=== PATIENT | male | born 1965 | race Caucasian/White ===

== ENCOUNTER → 2018-10-11 09:15 | Outpatient (CLI) | payer OTHER, SELFPAY ==
[2017-03-08 07:36] VITALS: BMI 33.3
[2018-10-11 10:54] LABS: Anion Gap 9 (5-15); BUN 26 mg/dL (7-18); Calcium,Total 8.6 mg/dL (8.5-10.1); Chloride 106 mmol/L (98-107); Cholesterol 176 mg/dL (200); Creatinine, Serum 1.04 mg/dL (0.70-1.30); EST Glomerular Filtration Rate 79 mL/min (>60); Est Glom Filt Rate - Afr Amer 95 mL/min (>60); Glucose 89 mg/dL (74-106); High Density Lipoprotein 52 mg/dL; Potassium 4.3 mmol/L (3.5-5.1); Sodium Level 143 mmol/L (136-145); Thyroid Stim Hormone (TSH) 0.72 uIU/mL (0.358-3.74); Triglycerides 112 mg/dL; Very Low Density Lipoprotein 22 mg/dL (5-40)
[2018-10-13 08:57] LABS: Vitamin D,25 Hydroxy 32.9 ng/mL (29.95-100.01)
== END ==
PROVIDERS: Family Provider Family Medicine; PCP Family Medicine; Referring Provider Family Medicine; Visit Provider Family Medicine
DX: Z00.00 Encounter for general adult medical examination without abnormal findings (principal); I10 Essential (primary) hypertension; E78.00 Pure hypercholesterolemia, unspecified
CPT/HCPCS: 36415; 80048; 80061; 82306; 84403; 84443

== ENCOUNTER → 2020-09-26 11:02 | Outpatient (CLI) | payer OTHER, SELFPAY ==
--- NOTE | 2020-09-26 12:23 | NEURO ---
NCS and/or EMG Patient Report Ordering Doctor: Jayro Lu DATE OF SERVICE: 09/26/20 Indication: Fluctuating stiffness, numbness and tingling of the left hand (patient is left hand dominant). Occasionally, symptoms will radiate further up the extremity. No noticeable weakness. No neck pain. Evaluate for entrapment neuropathy and/or radiculopathy. Findings: Nerve conduction studies were performed in the left upper extremity. The left median motor study recording the abductor pollicis brevis showed a slightly reduced amplitude, prolonged distal latency and slowed conduction velocity. The left ulnar motor study recording the abductor digiti minimi showed a normal amplitude, normal distal latency and normal conduction velocity. No conduction block or focal slowing was present across the elbow. The left median sensory response recording digit two showed a reduced amplitude, markedly prolonged latency and markedly slowed conduction velocity. The left ulnar sensory response recording digit five showed a normal amplitude, latency and conduction velocity. The left radial sensory response recording over the extensor snuff box showed a normal amplitude, latency and conduction velocity. Left median-ulnar lumbrical / interosseous motor latencies showed a normal median latency compared to the ulnar. Needle EMG of the left upper extremity and cervical paraspinal muscles was performed. No denervation was seen in any muscle. In the left abductor pollicis brevis, insertional activity was increased and occasional fasciculation potentials were seen. No clear evidence of active denervation. In the abductor pollicis brevis, motor units were large and polyphasic with slightly reduced recruitment. All other muscles demonstrated normal motor unit morphology, activation and recruitment patterns. Impression: This is an abnormal study. There is electrophysiologic evidence of a moderately severe, left median neuropathy across the wrist. These findings are compatible with the clinical diagnosis of carpal tunnel syndrome. In addition, there is no electrophysiologic evidence of superimposed cervical radiculopathy in the left upper extremity. Alexis Shah D.O.
== END ==
PROVIDERS: PCP Family Medicine; Referring Provider Physician Assistant Surgical; Visit Provider Physician Assistant Surgical
DX: R20.2 Paresthesia of skin (principal)
CPT/HCPCS: 95886; 95910

== ENCOUNTER 2022-01-01 19:50 | Emergency (ER) | payer OTHER, SELFPAY ==
[2022-01-01 19:51] VITALS: BP 184/103; PULSE 93; RESP 18; TEMP 36.8; O2SAT 98; BMI 36.1
--- NOTE | 2022-01-01 21:02 | EKG12_ITS ---
Test Reason : DYSRHYTHMIA Blood Pressure : / mmHG Vent. Rate : 078 BPM Atrial Rate : 078 BPM P-R Int : 154 ms QRS Dur : 098 ms QT Int : 386 ms P-R-T Axes : 059 062 041 degrees QTc Int : 440 ms Sinus rhythm with marked sinus arrhythmia Otherwise normal ECG Confirmed by SUSAN KILGORE, CALLY ([id number]), industrial editor TAWANA MCKEE ([id number]) on 01/02/2022 9:23:23 AM Referred By: TL Confirmed By:CALLY DAVIS MD
--- NOTE | 2022-01-01 21:02 | EX.ED.DYSGE1 ---
HPI History of Present Illness Chief Complaint: Shortness of Breath Informant: patient and family Narrative Narrative: Patient here with family evaluation sent from urgent care due to his chest pain complaints. He started having nonproductive cough 2 days ago yesterday fatigue today increased wheezing. Mild headache. If tingling from the neck up that was transient. No vomiting or diarrhea. No urinary symptoms. He had COVID twice last time March 2021 he is vaccinated without the booster. He states he was wheezing use inhaler prior to arrival. He notes his asthma is exacerbated. He says fatigue is similar to his COVID previously. Chest discomfort due to wheezing. No treatments done at urgent care he was sent here for evaluation. He has no diabetes history. He has improvement with asthma with steroid shots in the past. No history of coronary disease. History of hypertension. Prior similar symptoms: Yes PFSH PFSH Medical History Asthma HTN (hypertension) Home Medications bupropion HCl 300 mg 24 hr tablet, extended release (Wellbutrin XL) 300 mg PO DAILY 08/23/16 [History Last Taken Unknown] aspirin 81 mg chewable tablet 81 mg PO DAILY@0800 03/07/17 [History Last Taken Unknown] lisinopril 5 mg tablet (Zestril) 5 mg PO DAILY 03/07/17 [History Last Taken 03/08/17 07:00] cephalexin 500 mg capsule 500 mg PO Q8H #21 caps 03/25/21 [Rx Last Taken Unknown] lisinopril 10 mg-hydrochlorothiazide 12.5 mg tablet 1 tab PO 03/25/21 [History Last Taken Unknown] Allergy/AdvReac Type Severity Reaction Status Date / Time ragweed pollen Allergy Shortness Verified 01/01/22 19:51 of breath Surgical History History of carpal tunnel release Social History Smoking Status: Never smoker ROS ROS ED Constitutional Constitutional ED: Denies chills, fever(s) or sweats Eyes Eyes: Denies change in vision ENT ENT ED: Denies dysphagia or sore throat Cardiovascular Cardiovascular: Reports chest pain; Denies leg edema, palpitations or racing heartbeat Respiratory/Chest Respiratory/Chest: Reports cough and dyspnea; Denies dyspnea on exertion Gastrointestinal Gastrointestinal: Denies abdominal pain, diarrhea, nausea or vomiting Genitourinary Genitourinary ED: Denies dysuria, hematuria or urinary frequency Musculoskeletal Musculoskeletal: Denies back pain, extremity pain or neck pain Integumentary Denies rash or wounds Neurologic Neurologic: Reports headache(s); Denies paresthesias or weakness EXAM Physical Exam Const Vital Signs: 01/01/22 19:51 Temperature 98.2 F Temperature Source Temporal Pulse Rate 93 Respiratory Rate 18 Blood Pressure 184/103 H Blood Pressure Mean 130 Pulse Ox 98 Oxygen Delivery Method Room Air Positive well nourished and well developed General Appearance ED: well developed and NAD HEENT Reports moist mucous membranes normocephalic and atraumatic Eyes PERRL, EOMs intact bilaterally and conjunctivae normal General Eye ED: Yes normal appearance of both eyes Neck no lymphadenopathy and supple General: Negative for tenderness Chest Wall Chest: Negative for tenderness Resp normal respiratory effort and normal air movement Effort and Inspection: symmetric chest movement; Negative for respiratory distress Cardio regular rate, regular rhythm and no murmurs Peripheral Pulses: pulses 2+ throughout GI normal to inspection, nondistended, normoactive bowel sounds and non-tender Palpation: Negative for guarding or rebound tenderness present Back/Spine no CVA tenderness and no thoracic nor lumbar tenderness Extremity normal to inspection General Extremety ED: Negative for edema or tenderness General Extremity: Negative for edema Neuro oriented x3 and no sensory deficits noted Sensorium / Orientation: awake and alert Skin no rashes or lesions noted and no wounds MDM MDM MDM Narrative Medical decision making narrative: Patient vitals are stable EKG was normal. He sent in from urgent care pericardiac work-up initiated COVID swab ordered addition for [place] with his asthma history. However prior to anything being obtain patient left the department stating he will follow-up with his PCP for this. Patient eloped prior to any results for image studies. EKG Initial EKG: Attestation: I personally reviewed and interpreted this EKG as follows: Comments: Sinus arrhythmia rate of 78, no ST or T wave changes. Discharge Plan Triage Chief Complaint: Shortness of Breath ED Provider: Alex Malhotra Dx/Rx/DC Orders Clinical Impression: Asthma exacerbation, Viral URI with cough, Chest pain Prescriptions: No Action lisinopril-hydrochlorothiazide 10-12.5 mg tablet 1 tab PO cephalexin 500 mg capsule 500 mg PO Q8H Qty: 21 0RF bupropion HCl [Wellbutrin XL] 300 MG tablet extended release 24 hr 300 mg PO DAILY aspirin 81 MG tablet,chewable 81 mg PO DAILY@0800 Label Comments: stopped taking on 03/05/14 for 03/08/17 lisinopril [Zestril] 5 MG tablet 5 mg PO DAILY Primary Care Provider: Santana Wisdom Referrals: Santana Wisdom MD [Primary Care Provider] - Disposition Disposition: Elopement Discharge Date/Time: 01/01/22 21:45
== END 2022-01-01 21:45 | disposition left against medical advice (07) ==
PROVIDERS: Emergency Provider Emergency Medicine; PCP Family Medicine; Visit Provider Emergency Medicine
DX: J45.901 Unspecified asthma with (acute) exacerbation (principal); J06.9 Acute upper respiratory infection, unspecified; I10 Essential (primary) hypertension; Z86.16 Personal history of COVID-19; Z79.899 Other long term (current) drug therapy; Z79.82 Long term (current) use of aspirin
CPT/HCPCS: 93005; 96372; 99283; A4216

== ENCOUNTER → 2022-07-09 | Outpatient (CLI) | payer OTHER, SELFPAY ==
[2022-07-09 12:32] LABS: Anion Gap 6 (5-15); BUN 22 mg/dL (7-18); BUN/Creat Ratio 19.5 RATIO (10-20); Chloride 108 mmol/L (98-107); Cholesterol 216 mg/dL (200); Creatinine, Serum 1.13 mg/dL (0.70-1.30); EST Glomerular Filtration Rate 71 mL/min (>60); Est Glom Filt Rate - Afr Amer 86 mL/min (>60); Glucose 96 mg/dL (74-106); High Density Lipoprotein 45 mg/dL; Potassium 4.3 mmol/L (3.5-5.1); Sodium Level 142 mmol/L (136-145); Triglycerides 239 mg/dL; Very Low Density Lipoprotein 48 mg/dL (5-40)
== END | disposition home or self-care (01) ==
LOC: MFPLAB 10:25
PROVIDERS: PCP Family Medicine; Visit Provider Nurse Practitioner Family
DX: Z13.220 Encounter for screening for lipoid disorders (principal); I10 Essential (primary) hypertension
CPT/HCPCS: 36415; 80048; 80061

== ENCOUNTER → 2022-10-01 | Outpatient (CLI) | payer OTHER, SELFPAY ==
[2022-10-01 13:24] LABS: Cholesterol 193 mg/dL (200); High Density Lipoprotein 40 mg/dL; Triglycerides 246 mg/dL; Very Low Density Lipoprotein 49 mg/dL (5-40)
== END | disposition home or self-care (01) ==
LOC: MFPLAB 10:27
PROVIDERS: PCP Family Medicine; Visit Provider Family Medicine
DX: E78.00 Pure hypercholesterolemia, unspecified (principal)
CPT/HCPCS: 36415; 80061

== ENCOUNTER → 2023-05-20 | Outpatient (CLI) | payer OTHER, SELFPAY ==
--- OUTSIDE RECORDS SUMMARY | 2023-05-20 09:30 | XMS RPT_ITS | CCD ---
Author Name Unknown Address [address] [place] [address] Organization [facility] Care Team Providers Care Bark Tanner Name Role Phone Adonis KILGORE, Julio Jo Unavailable [phone] Terry HERNANDEZ, Subha Martínez Unavailable Pcp, No Primary Care Provider Unavailabl e Medications Completed/Discontinued Medications Medication Drug Class(es) Dates Sig (Normalized) Sig (Original) 24 hr buPROPion hydrochloride 300 mg extended release oral tablet (1 source) Aminoketone take 1 tablet by may th once daily buPROPion XL (WELLBUTRIN XL) 300 mg 24 hr tablet Take 300 mg by mouth once daily. 0 Active Problems Problem Classification Problem Date Documented Da te Episodic/Chronic Nonspecific chest pain (1 source) Chest discomfort; Translations: [Other chest pain] Episodic Unclassified (1 source) Screening for malignant neoplasm of colon ; Translations: [Encounter for screening for malignant neoplasm of colon] Onset: 02-08-2017 02-08-2017 Results Test Name Value Interpretation Reference Range Facil ity Encounters Encounter Date Encounter Type Care Provider Facility Start: 01-01-2022 End: 01-01-2022 ambulatory Facility:[facility] Start: 01-01-2022 End: 01-01-2022 Patient encounter procedure Baljeet Cho APRN.SCIENCE AND OPERATIONS OFFICER Work Phone: [facility] Procedures Date Procedure Procedure Detail Performing Clinician Start: 02-08-2017 Screening for malign ant neoplasm of colon Screening, colon cancer Subha Stewart PA-C Plan of Treatment Date Care Activity Detail Author Start: 12-21-2021 Influenza vaccination INFLUENZA (#1) [facility] Start: 02-17-2021 COVID-19 VACCINE (2 - Booster for Flo series) COVID-19 VACCINE (2 - Booster for Flo series) [facility] Start: 09-21-2018 PROSTATE CANCER SCREENING DISCUSSION PROSTATE CANCER SCREENING DISCUSSION [facility] Start: 03-08-2017 End: 03-08-2017 Appointment Appointment [facility] Work Phone: Start: 02-08-2017 End: 02-11-2017 Colonoscopy flx dx w/collj spec when pfrmd Colonoscopy [facility] [employer] Work Phone: Start: 09-21-2013 SHINGRIX VACCINE (1 of 2) SHINGRIX VACCINE (1 of 2) [facility] Start: 09-21-2008 COLOGUARD (FIT-DNA) COLOGUARD (FIT-DNA) [facility] Start: 09-21-2008 Colonoscopy COLONOSCOPY [facility] Start: 09-21-2008 COLORECTAL CANCER SCREENING COLORECTAL CANCER SCREENING [facility] Start: 09-21-[address] COLONOGRAPHY [facility] Start: 09-21-2008 DIABETES SCREEN DIABETES SCREEN [facility] Start: 09-21-2008 FECAL OCCULT BLOOD FECAL OCCULT BLOOD [facility] Start: 09-21-2008 SIGMOIDOSCOPY SIGMOIDOSCOPY [facility] Start: 09-21-1998 LIPID SCREEN LIPID SCREEN [facility] Start: 09-21-1982 Urine microalbumin profile DTAP,TDAP,TD (1 - Tdap) [facility] Start: 09-21-1981 HEPATITIS C SCREENING HEPATITIS C SCREENING [facility] Start: 09-21-1981 HIV SCREENING HIV SCREENING [facility] Start: 1975 Adult depression screening assessment DEPRESSION SCREENING [facility] Start: 1965 HEPATITIS B (1 of 3 - 3-dose series) HEPATITIS B (1 of 3 - 3-dose series) [facility] Payers Date Payer Category Payer Private Health Insurance [facility] CHO[facility] PL[facility] [id number] 2018-Present [phone] [address] [place] [address] HMO [id number] 2018 Unknown [id number] Social History Date Type Detail [facility] Start: 1965 Sex Assigned At Not on file [facility] Progress note 01-01-2022 Note Date & Type Note Facility 01-01-2022 Note HNO ID: [id number] Author: Baljeet Cho APRN.FABIOLA Service: ? Author Type: Nurse Practitioner Type: Progress Notes Filed: 01/01/2022 7:46 PM Note Text: Patient triaged at [facility]. Here today with sudden onset chest pressure/sob, and tingly feeling in head. Patient not known to [facility]. I will refer to ER. Patient in no apparent distress at time of triage. Boss to drive pov to [facility] ER. [facility] History of Present illness Narrative 01-01-2022 Baljeet Cho APRN.FABIOLA - 01/01/2022 7:44 PM EDT Note Date & Type Note Facility 01-01-2022 History of Presen t illness Narrative Patient triaged at [facility]. Here today with sudden onset chest pressure/sob, and tingly feeling in head. Patient not known to [facility]. I will refer to ER. Patient in no apparent distress at time of triage. Boss to drive pov to [facility] ER. documented in this encounter [facility] Evaluation note Note Date & Type Note Facility documented in this encounter [facility] Summary Purpose Family History No Family History Records FoundNo Family History Records Found Advance Directives No Advanced Directives Records FoundNo Advanced Directives Records Found Additional Source Comments (unrecognized sect ion and content) No Status Records FoundNo Status Records Found INFORMATION SOURCE (unrecogn ized section and content) DATE CREATED AUTHOR AUTHOR'S ORGANIZ ATION 01/02/2022 [facility] Source Comments (unrecognize d section and content) In the event this informatio n is protected by the Federal Confidentiality of Alcohol and Drug Abuse Patient Records regulations: The Federal rules restrict any use of the information to criminally investigate or prosecute any alcohol or drug abuse patient.[facility] Care Teams (unrecognized sec tion and content) FOR RECORDS PERTAINING TO PATIENTS WHO ARE OR HAVE BEEN ENROLLED IN A CHEMICAL DEPENDENCY/SUBSTANCEABUSE PROGRAM, SOME INFORMATION MAY BE OMITTED. This clinical summary was aggregated from multiple sources. Caution should be exercised in using it in the provision of clinical care. This summary normalizes information from multiple sources, and as a consequence, information in this document may materially change the coding, format and clinical context of patient data. In addition, data may be omitted in some cases. CLINICAL DECISIONS SHOULD BE BASED ON THE PRIMARY CLINICAL RECORDS. [facility]. provides no warranty or guarantee of the accuracy or completeness of information in this document.
[2023-05-20 11:25] LABS: Anion Gap 6 (5-15); BUN 16 mg/dL (7-18); BUN/Creat Ratio 14.7 RATIO (10-20); Calcium,Total 8.8 mg/dL (8.5-10.1); Chloride 108 mmol/L (98-107); Creatinine, Serum 1.09 mg/dL (0.70-1.30); EST Glomerular Filtration Rate 73 mL/min (>60); Est Glom Filt Rate - Afr Amer 89 mL/min (>60); Glucose 82 mg/dL (74-106); Potassium 4.2 mmol/L (3.5-5.1); Sodium Level 140 mmol/L (136-145)
[2023-05-20 14:19] LABS: Microalbumin,Random Urine < 5.0 mg/L (NO RANGE EST.)
== END | disposition home or self-care (01) ==
LOC: MFPLAB 08:53
PROVIDERS: PCP Family Medicine; Visit Provider Nurse Practitioner Family
DX: I10 Essential (primary) hypertension (principal)
CPT/HCPCS: 36415; 80048; 82043; 82570

== ENCOUNTER → 2024-02-07 | Outpatient (CLI) | payer OTHER, SELFPAY ==
[2024-02-07 10:39] LABS: Absolute Lymphocyte Count 3.23 X10^3/uL (0.83-4.51); Absolute Neutrophil Count 4.9 X10^3/uL (2.0-7.7); Basophil# 0.05 X10^3/uL; Basophil% 0.5 % (0-1); Eosinophil# 0.19 X10^3/uL; Eosinophils% 2.1 % (0-5); Hematocrit 48.6 % (40-54); Hemoglobin 15.9 g/dL (13.0-16.5); Lymphocyte # 3.23 X10^3/ul (0.83-4.51); Lymphocyte % 35.2 % (19-41); Mean Corp Hgb Conc 32.7 g/dL (32-36); Mean Corpuscular Hgb 29.6 pg (27.0-32.0); Mean Corpuscular Volume 90.5 fL (80-94); Mean Platelet Vol. 10.7 fl (6.2-12.0); Monocyte# 0.79 X10^3/uL; Monocyte% 8.6 % (0-10); NRBC Flagged by Analyzer 0 % (0-5); Neutrophil # 4.85 X10^3/uL (2.7-7.7); Neutrophil % 52.8 % (47-70); Platelet Count 247 K/mm3 (150-450); RBC Distribution Width CV 12.5 % (11.6-14.6); RBC Distribution Width SD 40.8 fl (35.1-43.9); Red Blood Count 5.37 M/mm3 (4.6-6.2); White Blood Count 9.2 K/mm3 (4.4-11.0)
[2024-02-07 11:48] LABS: Anion Gap 7 (5-15); BUN 18 mg/dL (7-18); BUN/Creat Ratio 15.3 RATIO (10-20); Calcium,Total 9.5 mg/dL (8.5-10.1); Chloride 106 mmol/L (98-107); Creatinine, Serum 1.18 mg/dL (0.70-1.30); EST Glomerular Filtration Rate 67 mL/min (>60); Est Glom Filt Rate - Afr Amer 81 mL/min (>60); Glucose 88 mg/dL (74-106); Potassium 3.8 mmol/L (3.5-5.1); Sodium Level 136 mmol/L (136-145)
== END | disposition home or self-care (01) ==
LOC: MFPLAB 08:55
PROVIDERS: PCP Family Medicine; Visit Provider Family Medicine
DX: R55 Syncope and collapse (principal)
CPT/HCPCS: 36415; 80048; 85025

== ENCOUNTER → 2024-03-24 | Outpatient (CLI) | payer OTHER, SELFPAY ==
--- NOTE | 2024-03-24 10:39 | ECHOCS_ITS ---
Reason For Study: Arrhythmia Procedure This was a 2D Doppler, Color Flow transthoracic echocardiogram. Contrast injection was performed. Exam performed in department. Left Ventricle Normal LV size. The estimated ejection fraction is 55 %. No evidence for diastolic dysfunction. No regional wall motion abnormalities noted. Right Ventricle Normal RV size. Normal systolic function. Atria The left and right atria are normal. No doppler evidence for ASD. Mitral Valve There is no mitral valve stenosis. No mitral valve insufficiency. Tricuspid Valve There is no tricuspid stenosis. Unable to estimate RV systolic pressure due to inadequate jet, pulmonary artery pressure probably normal. Aortic Valve Trisinus/trileaflet aortic valve. Aortic sclerosis, no stenosis. There is no aortic stenosis. No aortic valve insufficiency. Pulmonic Valve There is no pulmonic valvular stenosis. No pulmonic valve insufficiency. Great Vessels Normal aortic root. Pericardium/Pleural No pericardial effusion. Medication 22 gauge I.V. with prn adaptor inserted into right arm. Diluted definity 2ml given slow IV push to enhance endocardial definition. MMode/2D Measurements & Calculations LVIDd: 4.6 cm IVSd: 1.0 cm asc Aorta Diam: 3.6 cm LVIDs: 3.0 cm LVPWd: 1.0 cm RVDd: 3.2 cm FS: 34.6 % LAV(MOD-bp): 17.2 ml LVAd ap4: 28.0 cm2 SV(MOD-sp4): 58.0 ml LAV(MOD-bp) Indexed: 7.4 ml/m2 LVLd ap4: 7.6 cm SI(MOD-sp4): 24.9 ml/m2 LAV(MOD-sp2): 13.5 ml EDV(MOD-sp4): 85.9 ml LAV(MOD-sp4): 18.5 ml EDV(sp4-el): 88.3 ml LVAs ap4: 14.0 cm2 LVLs ap4: 6.1 cm ESV(MOD-sp4): 27.8 ml ESV(sp4-el): 27.2 ml EF(MOD-sp4): 67.6 % EF(sp4-el): 69.2 % SV(sp4-el): 61.1 ml LA A4 area: 9.2 cm2 LA dimension(2D): 3.6 cm RA A4 area: 8.1 cm2 TAPSE: 2.6 cm Time Measurements MV dec time: 0.23 sec Doppler Measurements & Calculations MV E max rosalio: 57.5 cm/sec Lat Peak E' Rosalio: 7.6 cm/sec Med Peak E' Rosalio: 6.7 cm/sec MV A max rosalio: 92.8 cm/sec E/E' lat: 7.5 E/E' med: 8.6 MV E/A: 0.62 MV dec slope: 250.9 cm/sec2 Ao V2 max: 141.1 cm/sec LV V1 max: 119.2 cm/sec Ao max P.0 mmHg LV V1 max P.7 mmHg Ao V2 mean: 87.9 cm/sec LV V1 mean P.6 mmHg Ao mean P.6 mmHg LV V1 mean: 73.6 cm/sec Ao V2 VTI: 22.4 cm LV V1 VTI: 21.0 cm AV (velocity ratio): 0.94 PA V2 max: 109.2 cm/sec ECHO/Echo Complete W/ Contrast Interpretation Summary The estimated ejection fraction is 55 %. No evidence for diastolic dysfunction. Ordering Physician: Nick Anderson Referring Physician: Santana Wisdom Performed By: Jasmyn Brunner RVT, RDCS and Student
== END | disposition home or self-care (01) ==
PROVIDERS: PCP Family Medicine; Referring Provider Internal Medicine Cardiovascular Disease; Visit Provider Internal Medicine Cardiovascular Disease
DX: R94.31 Abnormal electrocardiogram [ECG] [EKG] (principal)
CPT/HCPCS: 93306; Q9957; A4216; C8929

== ENCOUNTER 2024-10-06 10:34 | Emergency (ER) | payer OTHER, SELFPAY ==
[2024-10-06 10:35] VITALS: BP 159/115; PULSE 88; RESP 16; TEMP 36.3; O2SAT 97; BMI 36.8
--- NOTE | 2024-10-06 10:59 | EX.ED.DYSGE1 ---
HPI History of Present Illness Chief Complaint: Foreign Body Informant: patient Narrative Narrative: 59-year-old male presenting to the emergency room with a chief complaint of neck swelling. Patient states that last evening he was mowing the lawn. This to his larynx. States his more. He states he does have some environmental allergens which has been worse this spring. Patient does not have runny nose watery eyes or sneezing. Patient notes a history of asthma and states his asthma has been very well-controlled recently. This morning he was going to go buy a humidifier but he felt some swelling on the right side of his neck that is tender. He denies any fevers. No current rashes. He notes he did eat breakfast this morning and other than some soreness when he swallowed was able to swallow without difficulty. [facility] Medical History AV block, 2nd degree Syncope Acute sinusitis Encounter for screening for COVID-19 Cellulitis Asthma HTN (hypertension) Home Medications ?Medication ?Instructions ?Recorded ?Last Taken ?Type aspirin 81 mg chewable tablet 81 mg PO DAILY@0800 03/07/17 10/06/24 History albuterol sulfate 90 mcg/actuation 2 puff inhalation Q4-6H PRN 03/05/24 Unknown History aerosol inhaler (Ventolin HFA) shortness of breath or wheezing multivitamin 1 tab PO DAILY 03/05/24 10/06/24 History omega 0-jxk-imu-fish oil 300 1 cap PO DAILY 03/05/24 10/06/24 History mg-1,000 mg capsule (Fish Oil) green tea leaf extract (Cardio Tea 1 cap PO DAILY 10/06/24 10/06/24 History capsule) prednisone 20 mg tablet 60 mg (3 x 20 mg) PO DAILY #15 10/06/24 Unknown Rx TABLETS sildenafil 50 mg tablet 50 mg PO QWEEK 10/06/24 10/04/24 History Allergy/AdvReac Type Severity Reaction Status Date / Time ragweed pollen Allergy Shortness Verified 03/23/24 13:52 of breath Family History Father CVA (cerebral vascular accident) Pacemaker Mother Hypertension Surgical History History of carpal tunnel release Social History Smoking Status: Never smoker alcohol intake: never substance use type: does not use caffeine: Yes ROS ROS ED Constitutional Constitutional ED: Denies chills, fever(s) or weight loss Eyes Eyes: Denies change in vision or diplopia ENT ENT ED: Reports sore throat and other Details: See history of present illness ; Denies ear pain or rhinorrhea Cardiovascular Cardiovascular: Denies chest pain, orthopnea, palpitations or racing heartbeat Respiratory/Chest Respiratory/Chest: Reports cough; Denies dyspnea or orthopnea Gastrointestinal Gastrointestinal: Denies abdominal pain, diarrhea, nausea or vomiting Genitourinary Genitourinary ED: Denies dysuria, hematuria or urinary frequency Musculoskeletal Musculoskeletal: Denies arthralgias or myalgias Integumentary Denies abscess or rash Neurologic Neurologic: Denies headache(s) or weakness Psychiatric Psychiatric: Denies anxiety, depression, suicidal ideation or suicidal thoughts Endocrine Endocrinology: Denies polydipsia, polyphagia or polyuria Allergic/Immunologic Allergic/Immunologic ED: Denies mouth swelling, tongue swelling or urticaria EXAM Physical Exam Const Vital Signs: 10/06/24 10:35 10/06/24 10:50 10/06/24 11:22 Temperature 97.3 F L Temperature Source Temporal Pulse Rate 88 Respiratory Rate 16 Respiratory Effort Normal Respiratory Pattern Normal Blood Pressure 159/115 H 213/96 H Blood Pressure Mean 129 135 Pulse Ox 97 Oxygen Delivery Method Room Air 10/06/24 13:40 10/06/24 13:47 Temperature 96.9 F L Temperature Source Pulse Rate 90 90 Respiratory Rate 21 H 21 H Respiratory Effort Respiratory Pattern Blood Pressure 187/101 H 187/101 H Blood Pressure Mean 129 129 Pulse Ox 99 99 Oxygen Delivery Method Room Air Positive well nourished and well developed General Appearance ED: well developed HEENT Reports normocephalic, head/scalp atraumatic and moist mucous membranes HEENT Narrative: Normal-appearing uvula. No tongue or lip swelling. No petechiae or erythema. No obvious retropharyngeal or peritonsillar abscess is noted. Eyes PERRL and EOMs intact bilaterally Neck supple and no JVD Neck Narrative: Right side demonstrates a circular like fullness in the anterior neck just lateral to the larynx. He does have a bit of a hoarse voice. He is handling his secretions normally. No meningitic or stiff neck Resp normal respiratory effort and clear to auscultation bilaterally Cardio regular rate, regular rhythm and no murmurs GI normal to inspection, nondistended, normoactive bowel sounds and non-tender Palpation: soft Back/Spine no CVA tenderness and normal ROM Extremity normal to inspection General Extremety ED: Negative for edema General Extremity: Negative for edema Neuro oriented x3 and CN's II-XII intact bilaterally Sensorium / Orientation: alert Motor Exam: strength 5/5 throughout Psych mental status grossly normal Mood & Affect: Negative for depressed or tearful Skin no rashes or lesions noted and no wounds MDM MDM MDM Narrative Medical decision making narrative: Differential diagnosis includes lymph node swelling epiglottitis malignancy allergic reaction thyrotoxicosis Basic blood work was obtained essentially negative. CT of the neck with IV contrast was obtained this demonstrates mass of the right thyroid. Thyroid studies were ordered which were normal. I spoke with Dr. Novoa from general surgery as well as Dr. Wisdom his primary care doctor. Annalisa to set him up for an outpatient thyroid ultrasound and have him follow-up with general surgery. As there could be an allergic component to some of his symptoms I Soler placed him on a short course of prednisone and have him use Benadryl as needed. Patient is comfortable this plan. He is not having any respiratory distress or difficulties swallowing and is handling secretions normally. History & Record Review Discussion w/independent historian: Patient and Significant other Lab Data Attestation: I reviewed the patient's lab results. Labs: Laboratory Results - last 24 hr 10/06/24 11:15 WBC 7.9 RBC 5.30 Hgb 15.6 Hct 45.7 MCV 86.2 MCH 29.4 MCHC 34.1 RDW Std Deviation 38.9 RDW Coeff of Dewayne 12.3 Plt Count 260 MPV 10.1 Immature Gran % (Auto) 0.600 Neut % (Auto) 45.5 L Lymph % (Auto) 39.7 [place] % (Auto) 10.3 H Eos % (Auto) 2.9 Baso % (Auto) 1.0 Absolute Neuts (auto) 3.6 Absolute Lymphs (auto) 3.13 Nucleated RBC % 0 Sodium 141 Potassium 3.7 Chloride 104 Carbon Dioxide 24.9 Anion Gap 11 BUN 19 Creatinine 1.03 Estim Creat Clear Calc 96.27 Est GFR (MDRD) Non-Af 83 BUN/Creatinine Ratio 18.3 Glucose 102 H Calcium 9.1 TSH 1.650 Free T4 0.80 Thyroxine (T4) 6.1 Free T3 pg/dL 3.3 Radiography Diagnostic Testing: Clinical Impression(s) from Imaging Studies Soft Tissue Neck CT 10/06/24 11:30 IMPRESSION: 2.8 cm 6.6 cm 4.7 cm soft tissue mass arising from the superior aspect of the thyroid gland extending cephalad to the level of the hyoid bone more prominent on the right side. Scattered punctate calcifications are seen within it. There is also evidence of right cervical lymphadenopathy. Lymphoid tissue should be ruled out. Possible mass arising from the thyroid gland should be excluded as well. Reading Location: [place] [id number] Management Discussion w/another healthcare provider: Electrical Project Manager (Dr. Novoa and Dr. Wisdom) Discharge Plan Triage Chief Complaint: Foreign Body ED Provider: Ulises Lima Dx/Rx/DC Orders Clinical Impression: Thyroid mass, Acute sore throat Prescriptions: New prednisone 20 mg tablet 60 mg PO DAILY Qty: 15 0RF No Action albuterol sulfate [Ventolin HFA] 90 mcg/actuation HFA aerosol inhaler 2 puff inhalation Q4-6H PRN (Reason: shortness of breath or wheezing) multivitamin Tablet 1 tab PO DAILY omega 2-oet-jpv-fish oil [Fish Oil] 300-1,000 mg capsule 1 cap PO DAILY aspirin 81 MG tablet,chewable 81 mg PO DAILY@0800 Cardio Tea Capsule 1 cap PO DAILY sildenafil 50 mg tablet 50 mg PO QWEEK Other Ambulatory Orders: Thyroid (Routine) Facility: [facility] - Location: [facility] Ordered By: Dr. Ulises Lima Primary Care Provider: Santana Wisdom Referrals: Nick Novoa MD [Med Staff - Active Staff] - As soon as possible (for surgery evaluation) Santana Wisdom MD [Primary Care Provider] - Print Language: Tamazight Disposition Disposition: Home, Self Care Discharge Date/Time: 10/06/24 13:48
[2024-10-06 11:22] VITALS: BP 213/96
[2024-10-06 11:26] LABS: Absolute Lymphocyte Count 3.13 X10^3/uL (0.83-4.51); Absolute Neutrophil Count 3.6 X10^3/uL (2.0-7.7); Basophil# 0.08 X10^3/uL; Eosinophil# 0.23 X10^3/uL; Eosinophils% 2.9 % (0-5); Hematocrit 45.7 % (40-54); Hemoglobin 15.6 g/dL (13.0-16.5); Lymphocyte # 3.13 X10^3/ul (0.83-4.51); Lymphocyte % 39.7 % (19-41); Mean Corp Hgb Conc 34.1 g/dL (32-36); Mean Corpuscular Hgb 29.4 pg (27.0-32.0); Mean Corpuscular Volume 86.2 fL (80-94); Mean Platelet Vol. 10.1 fl (6.2-12.0); Monocyte# 0.81 X10^3/uL; Monocyte% 10.3 % (0-10); NRBC Flagged by Analyzer 0 % (0-5); Neutrophil # 3.59 X10^3/uL (2.7-7.7); Neutrophil % 45.5 % (47-70); Platelet Count 260 K/mm3 (150-450); RBC Distribution Width CV 12.3 % (11.6-14.6); RBC Distribution Width SD 38.9 fl (35.1-43.9); White Blood Count 7.9 K/mm3 (4.4-11.0)
--- NOTE | 2024-10-06 11:30 | CT_ITS ---
PROCEDURE: SOFT TISSUE NECK WITH CONTRAST 10/06/2024 REASON FOR EXAM: RIGHT SIDED MASS TECHNIQUE: SOFT TISSUE NECK WITH CONTRAST CONTRAST: Isovue 370 VOLUME: 80 mL One or more dose reduction techniques were used (e.g., Automated exposure control, adjustment of the mA and/or kV according to patient size, use of iterative reconstruction technique). RADIATION DOSE SUMMARY: CTDlvol: 18.86 mGy DLP: 513.46 mGycm COMPARISON: None FINDINGS: Airway: Midline and patent. Salivary glands: Fatty replacement of the parotid glands. There is a 2.8 cm 6.6 cm by 4.7 cm soft tissue mass arising from the superior aspect of the thyroid gland extending cephalad to the level of the hyoid bone more prominent on the right side. Scattered calcifications are seen within it. There is also evidence of right cervical lymphadenopathy. This most likely represents possible lymphoid tissue. Mass arising from the thyroid gland can not be excluded. Vasculature: Carotid arteries and internal jugular veins are unremarkable. Orbits: Unremarkable at visualized levels. Paranasal sinuses and mastoids: Grossly clear at visualized levels. Lung apices: Clear. Upper mediastinum: Visualized mediastinum is unremarkable. Bones: Multilevel degenerative changes of the spine. Other: CT/Soft Tissue Neck WITH Contrast IMPRESSION: 2.8 cm 6.6 cm 4.7 cm soft tissue mass arising from the superior aspect of the t hyroid gland extending cephalad to the level of the hyoid bone more prominent on the right side. Scattered punctate calcificat ions are seen within it. There is also evidence of right cervical lymphadenopathy. Lymphoid tissue shou ld be ruled out. Possible mass arising from the thyroid gland should be excluded as well. Reading Location: [place] [id number]
[2024-10-06 12:03] LABS: Anion Gap 11 (5-15); BUN 19 mg/dL (4-19); BUN/Creat Ratio 18.3 RATIO (10-20); Calcium,Total 9.1 mg/dL (7.6-11.0); Carbon Dioxide 24.9 mmol/L (21.0-32.0); Chloride 104 mmol/L (98-108); Creatinine, Serum 1.03 mg/dL (0.70-1.20); EST Glomerular Filtration Rate 83 (>60); Estimated Creatinine Clearance 96.27 ml/min (50-250); Glucose 102 mg/dL (70-99); Potassium 3.7 mmol/L (3.3-5.1); Sodium Level 141 mmol/L (133-145)
[2024-10-06 12:37] LABS: Free T3 3.3 pg/mL (2.18-3.98); T4 Total, Thyroxin 6.1 ug/dL (4.5-12.1)
[2024-10-06 13:40] VITALS: BP 187/101; PULSE 90; RESP 21; O2SAT 99
[2024-10-06 13:47] VITALS: BP 187/101; PULSE 90; RESP 21; TEMP 36.1; O2SAT 99
== END 2024-10-06 13:48 | disposition home or self-care (01) ==
PROVIDERS: Emergency Provider Emergency Medicine; PCP Family Medicine; Visit Provider Emergency Medicine
DX: E07.9 Disorder of thyroid, unspecified (principal); J02.9 Acute pharyngitis, unspecified
CPT/HCPCS: 70491; 80048; 84436; 84439; 84443; 84481; 85025; 99283; Q9967; A4216

== ENCOUNTER → 2024-10-08 | Outpatient (CLI) | payer OTHER, SELFPAY ==
--- NOTE | 2024-10-08 15:54 | US_ITS ---
PROCEDURE: THYROID 10/08/2024 REASON FOR EXAM: (R) THYROID MASS TECHNIQUE: THYROID COMPARISON: None FINDINGS: Right thyroid lobe size: 3.5 x 1.8 x 1.0 cm Left thyroid lobe size: 3.0 x 1.5 x 1.7 cm Isthmus: 0.3 cm Background parenchymal echotexture is homogeneous. Nodules: None US/Thyroid IMPRESSION: Unremarkable thyroid ultrasound. Reading Location: [place] [address]
== END | disposition home or self-care (01) ==
LOC: US 15:53
PROVIDERS: PCP Family Medicine; Referring Provider Emergency Medicine; Visit Provider Emergency Medicine
DX: E07.9 Disorder of thyroid, unspecified (principal)
CPT/HCPCS: 76536